=== PATIENT | male | born 1970 | race Caucasian/White ===

== ENCOUNTER → 2018-03-14 | Day surgery (SDC) | payer BC ==
[~2018-03-14] MED LIST: BACITRACIN 50,000 UNIT VIAL ONE; BUPIVACAINE HCL 0.5% INJ 30 ML VIAL INJ ONE; CEFAZOLIN SOD 2 GM/D5W 50ML 50 ML IV ONE; CINNAMON500 MG PO; DEXAMETHASONE SOD PHOS INJ 4 MG/ML VIAL ONE; FENTANYL CITRATE/PF 100MCG/2 ML INJ ONE; FEOSOL45 MG PO; GARLIC1000 MG PO; KETOROLAC TROMETHAMINE 30 MG/ML VIAL ONE; LIDOCAINE HCL 1% 30ML-PF VIAL ONE; LIDOCAINE HCL 2% LOCAL INJ 5 ML SDV VIAL INJ ONE; MEGARED OMEGA PO; METFORMIN HCL500 MG PO; MIDAZOLAM HCL 2 MG/2 ML VIAL ONE; ONDANSETRON HCL INJ 2 MG/ML VIAL ONE; PROPOFOL IV EMULSION 10 MG/ML 20 ML VIAL ONE; SEVOFLURANE INHAL SOLN 250 ML PEN BTL ONE; SIMVASTATIN40 MG PO; TURMERIC1 GM PO; VITAMIN D3 PO
--- OUTSIDE RECORDS SUMMARY | 2018-03-14 05:06 | XMS REPORT | Clinical Summary ---
Author Author [facility] Organization [facility] Address Unknown Phone Unavailable Care Team Providers Care Pastoral Counselor Name Role Phone Corey Webb MD PCP Allergies Not on File Current Medications Not on file Active Problems Not on file Encounters Date Type Specialty Care Team Description 02/19/2018 Lab Lab Corey Webb MD Amputated toe, unspecified laterality (Primary Dx) 02/19/2018 Documentation [employer] Luis Phelps after 03/13/2017 Social History Tobacco Use Types Packs/Day Years Used Date Never Assessed Sex Assigned at Date Recorded Not on file Last Filed Vital Signs Not on file Plan of Treatment Health Maintenance Due Date Last Done Comments INFLUENZA VACCINE 12/26/2017 Procedures Procedure Name Priority Date/Time Associated Diagnosis Comments SEDIMENTATION RATE STAT 02/19/2018 Amputated toe, Results for this 12:18 PM CDT unspecified laterality procedure are in the results section. after 03/13/2017 Results * Sedimentation rate (02/19/2018 12:18 PM) Sedimentation rate 12 (H) 0 - 10 mm/hr [facility] DEPARTMENT OF PATHOLOGY AND GENOMIC MEDICINE Specimen Blood Performing Organization Address City/State/Zipcode Phone Number [facility] DEPARTMENT OF [facility] [place] [address] PATHOLOGY AND GENOMIC MEDICINE after 03/13/2017
--- NOTE | 2018-03-14 08:48 | Operative Report ---
DATE OF PROCEDURE: March 14, 2018 [employer] USER INTERFACE DEVELOPER: None PREOPERATIVE DIAGNOSIS: Acute osteomyelitis of left 3rd toe. POSTOPERATIVE DIAGNOSIS: Acute osteomyelitis of the left 3rd toe. PROCEDURE: Partial left 3rd toe amputation. FINDINGS: There was hard viable bone noted to the head of the proximal phalanx of the left 3rd toe. ANESTHESIA: General with a total of 25 mL of 1:1 mix 1% lidocaine and 0.5% Marcaine plain. ESTIMATED BLOOD LOSS: None. COMPLICATIONS: None. INDICATIONS FOR PROCEDURE: The patient is a very pleasant 47-year-old male with a history of diabetes mellitus with peripheral neuropathy, who had sustained an ulcer to the distal aspect of the left 3rd toe and formed osteomyelitis of the left 3rd toe evidenced by MRI, as well as a bone scan. At this time, the patient has opted for surgical resection of that osteomyelitic bone instead of IV antibiotics in term of volume infection at this time. Therefore, all the risks and complications of surgery were explained to the patient, including infection, pain, swelling, bleeding, nonhealing, and need for further surgery. At this time, there is no guarantee given. NARRATIVE OF PROCEDURE: Preoperatively, the patient was identified. The abscess was outlined. The left foot was marked. Thirty minutes prior to surgery, the patient was administered 2 g of Ancef. He was then taken to the OR and placed on the table in the supine position. After successful general anesthetic, an appropriate time out was performed. A left ankle tourniquet was applied. The left foot was then blocked with a total of 25 mL of 1:1 mix of 1% lidocaine plain and 0.5% Marcaine plain. The left foot was then prepped and draped in a sterile manner. The left foot was elevated with an Esmarch exsanguinating the blood. Tourniquet was now inflated to 250 mmHg. Attention was now directed to the dorsal aspect of the left 3rd toe, which the distal aspect of the 3rd toe at the middle phalanx extending distally was bulbous and swollen at this time. There was no active ulcerations apparent. The toe was swollen. At this time, a fishmouth incision was made encompassing over the proximal interphalangeal joint utilizing a 15 blade. The incision was now deepened down to the level of the subcutaneous tissue being careful to identify and retract all vital and neurovascular structures, and then cauterize all vessels as needed. At this time, the joint was now disarticulated at the proximal phalangeal joint. The toe was then passed off to pathology. The head of the 3rd metatarsal proximal interphalangeal was identified and was noted to be hard and viable at this time. The skin was now remodeled for dog ears. The wound was then irrigated with copious amounts of normal saline. After complete irrigation, veins and vessels were cauterized as needed. At this point for reapproximation, 4-0 Vicryl was utilized in a simple interrupted stitch, and 4-0 nylon was utilized in a simple interrupted stitch. At this point, prior to the dressing, the tourniquet was released. Cap refill was noted to all digits of 1-5 of the left foot. A Betadine soaked Adaptic gauze along with a dry sterile occlusive dressing with 4 x 4's, soft Jose Alberto, and an Jem bandage was applied to the left foot. The patient did tolerate the procedure well. Left the OR to the recovery room with vital signs stable and neurovascular status back to normal condition. Job#: [id number] JESUS GONZALES
[2018-03-14 09:15] VITALS: BP 168/78
--- NOTE | 2018-03-14 09:46 | Diagnostic Imaging Report ---
PROCEDURE:X-RAY LEFT FOOT, COMPLETE COMPARISON:None. INDICATIONS:STATUS POST LEFT 3RD TOE AMPUTATION FINDINGS: Status post amputation of the third toe middle and distal phalanges. Soft tissue swelling is present in the remaining aspect of the third toe. No evidence of periosteal change or bony destructive changes. No evidence of acute fracture or malalignment. Lis Franc alignment is maintained. Scattered mild degenerative changes. There is Achilles enthesopathy. CONCLUSION: Status post left third toe partial amputation without acute osseous abnormality. Soft tissue swelling in the proximal aspect of the third toe. Dictated by: JAY JAY STRINGER M.D. on 03/14/2018 at 9:54 Electronically approved by: JAY JAY STRINGER M.D. on 03/14/2018 at 9:54
== END | disposition home or self-care (01) ==
LOC: OR 04:55
PROVIDERS: ATTEND Podiatrist
DX: E11.69 Type 2 diabetes mellitus with other specified complication (principal); M86.172 Other acute osteomyelitis, left ankle and foot; E11.42 Type 2 diabetes mellitus with diabetic polyneuropathy; E78.00 Pure hypercholesterolemia, unspecified; Z79.84 Long term (current) use of oral hypoglycemic drugs
CPT/HCPCS: 28820; 36415; 73630; 82948; 88304; 88311; J1100; J1885; J2001 ×2; J2250; J2405; J0690

== ENCOUNTER → 2018-12-12 | Outpatient (CLI) | payer BC ==
[~2018-12-12] MED LIST changes: -BACITRACIN 50,000 UNIT VIAL ONE; -BUPIVACAINE HCL 0.5% INJ 30 ML VIAL INJ ONE; -CEFAZOLIN SOD 2 GM/D5W 50ML 50 ML IV ONE; -DEXAMETHASONE SOD PHOS INJ 4 MG/ML VIAL ONE; -FENTANYL CITRATE/PF 100MCG/2 ML INJ ONE; -KETOROLAC TROMETHAMINE 30 MG/ML VIAL ONE; -LIDOCAINE HCL 1% 30ML-PF VIAL ONE; -LIDOCAINE HCL 2% LOCAL INJ 5 ML SDV VIAL INJ ONE; -MIDAZOLAM HCL 2 MG/2 ML VIAL ONE; -ONDANSETRON HCL INJ 2 MG/ML VIAL ONE; -PROPOFOL IV EMULSION 10 MG/ML 20 ML VIAL ONE; -SEVOFLURANE INHAL SOLN 250 ML PEN BTL ONE
--- NOTE | 2018-12-12 16:41 | Diagnostic Imaging Report ---
Bone Scan, three-phase - feet and ankles Reason for exam: Left foot pain x 2 weeks in diabetic patient Radiopharmaceutical: Tc-99m MDP 25 mCi Comparison: None Following intravenous administration of the radiopharmaceutical, dynamic flow and immediate blood pool images of the feet and ankles followed by 3-hour delayed spot images were obtained. Flow and blood pool images show diffusely increased tracer activity in the left lower leg, ankle and foot compared to the right with focal mildly increased tracer in the distal aspect of the left 2nd toe. The delayed images show focal, mildly increased tracer in the left 2nd M/P joint and distal and proximal phalanges of the left 2nd toe. Increased tracer activity is also seen in the mid foot region in the lateral aspect of the left foot. Impression: No convincing evidence of osteomyelitis in the left 2nd toe. The absence of increased flow to the left 2nd M/P joint and the proximal phalanx of the left 2nd toe suggests that osteoblastic activity on delayed images is due to posttraumatic and/or degenerative change. The increased osteoblastic activity in the distal phalanx on all three phases of the study is mild, which could represent chronic osteomyelitis but not sufficiently intense to suggest acute osteomyelitis. If this is an area of concern, a labeled white blood cell study would add specificity to the evaluation. Findings in the left mid foot involve multiple adjacent bones, consistent with degenerative change. Signed by: Dr. Cori Dixon M.D. on 12/12/2018 4:37 PM
== END ==
LOC: NM 08:38
PROVIDERS: ATTEND Podiatrist
DX: L97.411 Non-pressure chronic ulcer of right heel and midfoot limited to breakdown of skin (principal); S91.301D Unspecified open wound, right foot, subsequent encounter; M20.42 Other hammer toe(s) (acquired), left foot; M20.41 Other hammer toe(s) (acquired), right foot
CPT/HCPCS: 78315; A9503